=== PATIENT | female | born 1945 ===

== ENCOUNTER → 2017-04-10 | Outpatient (CLI) | payer MEDICARE ==
[~2017-04-10] MED LIST: APIX5TAB PO; ATOR40TA69 PO; ATR80PT PO; CITA-139 PO; DICL100G39 TOP; FLUT16SP19 NS; MELA3TAB14 PO; MELA5TAB20 PO; METO-253 PO; METO25TA93 PO; MULT1TAB64 PO; TRAM-420 PO
--- NOTE | 2017-04-11 17:29 | RADIOLOGY IMAGING REPORT ---
FACILITY: [facility] PATIENT NAME: PATRICK FLORES : [id number] MR: [id number] V: [id number] EXAM DATE: [id number] ORDERING PHYSICIAN: DIANA TYSON TECHNOLOGIST: Margarita Wilson PROCEDURE:US LEFT BREAST COMPLETE COMPARISON:None. INDICATIONS:LEFT BREAST SWELLING TIMES SIX WEEKS, HISTORY OF BREAST IMPLANTS. FINDINGS: There is a breast implant in place which by patient history, is silicone. There is a large amount of fluid with debris surrounding the implant with edema in the adjacent soft tissues. These findings could be related to implant leakage, hemorrhage related to trauma (no definite history of trauma provided), a large inflammatory phlegmon or possibly related to malignancy. Given the question of possible implant leakage, a mammogram was not performed today. Bilateral breast MR with and without contrast is recommended for further evaluation. DIAGNOSTIC CATEGORY 0--INCOMPLETE: NEED ADDITIONAL IMAGING EVALUATION. RECOMMENDATIONS: BREAST MRI: BILATERAL BREASTS. IMPRESSION: BI-RADS 0: Bilateral breast MR with and without contrast recommended. Dictated by: Palmira Ferguson M.D. on 04/10/2017 at 17:27 Transcribed by: VANESSA on 04/10/2017 at 18:32 Approved by: Palmira Ferguson M.D. on 04/11/2017 at 17:28 [facility]
== END ==
LOC: US 12:24
PROVIDERS: ATTEND Family Medicine
DX: R92.8 Other abnormal and inconclusive findings on diagnostic imaging of breast (principal); Z98.82 Breast implant status

== ENCOUNTER 2017-04-18 15:23 | Outpatient (RCR) | payer MEDICARE ==
[2017-04-18 15:47] LABS: PLATELET COUNT, AUTOMATED 243 K/uL (150-450)
[2017-04-19] MEDS ORDERED: GADOBENATE 529MG/1ML 15ML VIAL IVP ONE (08:17)
[2017-04-19] MEDS ORDERED: NS 0.9% 50 ML VIAL 50 ML ONE (08:17)
[2017-04-19] MEDS ORDERED: GADOBENATE 529MG/1ML 5 ML VIAL ONE (08:21)
--- NOTE | 2017-04-25 08:36 | RADIOLOGY IMAGING REPORT ---
FACILITY: [facility] PATIENT NAME: PATRICK FLORES : [id number] MR: [id number] V: [id number] EXAM DATE: [id number] ORDERING PHYSICIAN: DIANA TYSON TECHNOLOGIST: Lynette Liriano PROCEDURE:BREAST BILATERAL W/O AND/OR WITH CONTRAST COMPARISON:The only other prior imaging studies available for comparison is a left breast ultrasound from April 10, 2017. INDICATIONS:SWELLING OF LEFT BREAST FOR SIX MONTHS, ABNORMAL ULTRASOUND, BILATERAL SILICONE BREAST IMPLANTS, HISTORY OF A CVA WITH LEFT SIDED PARALYSIS. TECHNIQUE:All imaging was performed prone in a dedicated breast coil. Axial and coronal T1 weighted images, axial T2, STIR and gradient echo images and sagittal STIR images were performed of both breasts. Axial T1 weighted dynamically enhanced imaging was also performed of both breasts using 5 dynamic sequences. The dynamic series was timed for a 90 second peak. Subtraction imaging was performed. 15 mL of MultiHance was utilized for the post-contrast portion of the examination. Post-processing was performed using a [employer] work station. FINDINGS: There are bilateral sub-glandular silicone breast implants in place. The right implant appears unremarkable. The left implant appears to be partially compressed by a large surrounding fluid collection which appears to be contained within the capsule. The collection pressed toward the implant appears heterogeneous. No abnormal areas of contrast enhancement are identified in either breast. No abnormal enhancement identified in the visualized portion of the liver. No pathologic appearing axillary or internal mammary lymph nodes are seen. DIAGNOSTIC CATEGORY 4--SUSPICIOUS FOR MALIGNANCY. RECOMMENDATIONS: ULTRASOUND-GUIDED CYST ASPIRATION: LEFT BREAST. PLEASE NOTE:A NORMAL MRI DOES NOT EXCLUDE THE POSSIBILITY OF BREAST CANCER. A CLINICALLY SUSPICIOUS PALPABLE LUMP SHOULD BE BIOPSIED. CORRELATION WITH CLINICAL EXAM AND OTHER IMAGING STUDIES IS RECOMMENDED. IMPRESSION: BI-RADS 4: The collection surrounding the left silicone breast implant appears to remain within the capsule however the differential diagnosis for this finding would include a hematoma, lymphoma or a reactive effusion. Ultrasound guided drainage of the fluid collection with cytology is recommended to exclude lymphoma. Dictated by: Palmira Ferguson M.D. on 04/20/2017 at 14:03 Transcribed by: VANESSA on 04/20/2017 at 19:28 Approved by: Palmira Ferguson M.D. on 04/25/2017 at 8:34 [facility]
== END 2017-04-19 18:00 | disposition home or self-care (01) ==
LOC: MRI 15:23 → EDSTATUS 04-19 15:22 → MRI 04-19 18:00
PROVIDERS: ATTEND Family Medicine
DX: R92.8 Other abnormal and inconclusive findings on diagnostic imaging of breast (principal); N63.0 Unspecified lump in unspecified breast; Z98.82 Breast implant status; Z86.73 Personal history of transient ischemic attack (TIA), and cerebral infarction without residual deficits
CPT/HCPCS: 0159T; 36415; 84443; 85025; A9577; C8908; J7050; 77059; 82040; 82247; 82310; 82374; 82435; 82565; 82947; 84075; 84132; 84155; 84295; 84450; 84460; 84520